=== PATIENT | male | born 1960 | race Caucasian/White ===

== ENCOUNTER → 2017-07-25 09:12 | Outpatient (CLI) | payer BC, SELFPAY ==
[2017-07-25 09:57] LABS: PSA,Total- Diagnostic < 0.01 ng/mL (0.0-4.0)
== END ==
PROVIDERS: Family Provider Family Medicine; PCP Family Medicine; Visit Provider Urology
DX: C61 Malignant neoplasm of prostate (principal)
CPT/HCPCS: 36415; 84153

== ENCOUNTER → 2018-02-04 08:12 | Outpatient (CLI) | payer BC, SELFPAY ==
[2018-02-04 09:52] LABS: PSA,Total- Diagnostic < 0.01 ng/mL (0.0-4.0)
== END ==
PROVIDERS: Family Provider Family Medicine; PCP Family Medicine; Visit Provider Urology
DX: C61 Malignant neoplasm of prostate (principal)
CPT/HCPCS: 36415; 84153

== ENCOUNTER → 2018-08-04 10:40 | Outpatient (CLI) | payer BC, SELFPAY ==
[2016-08-11 06:12] VITALS: BMI 27.3
[2018-08-04 12:20] LABS: PSA,Total- Diagnostic < 0.01 ng/mL (0.0-4.0)
== END ==
PROVIDERS: Family Provider Family Medicine; PCP Family Medicine; Referring Provider Urology; Visit Provider Urology
DX: C61 Malignant neoplasm of prostate (principal)
CPT/HCPCS: 36415; 84153

== ENCOUNTER → 2019-02-10 09:53 | Outpatient (CLI) | payer BC, SELFPAY ==
[2016-08-11 06:12] VITALS: BMI 27.3
[2019-02-10 10:48] LABS: PSA,Total- Diagnostic < 0.01 ng/mL (0.0-4.0)
== END ==
PROVIDERS: Family Provider Family Medicine; PCP Family Medicine; Referring Provider Urology; Visit Provider Urology
DX: C61 Malignant neoplasm of prostate (principal)
CPT/HCPCS: 36415; 84153; 84403

== ENCOUNTER → 2020-02-16 10:26 | Outpatient (CLI) | payer BC, SELFPAY ==
[2016-08-11 06:12] VITALS: BMI 27.3
[2020-02-16 11:44] LABS: PSA,Total- Diagnostic < 0.01 ng/mL (0.0-4.0)
== END ==
PROVIDERS: PCP Family Medicine; Referring Provider Urology; Visit Provider Urology
DX: C61 Malignant neoplasm of prostate (principal)
CPT/HCPCS: 36415; 84153

== ENCOUNTER → 2022-07-12 | Outpatient (CLI) | payer OTHER, SELFPAY ==
[2022-07-12 10:45] LABS: PSA,Total- Diagnostic < 0.01 ng/mL (0.0-4.0)
== END | disposition home or self-care (01) ==
LOC: LAB 09:36
PROVIDERS: PCP Physician Assistant; Referring Provider Registered Nurse; Visit Provider Registered Nurse
DX: C61 Malignant neoplasm of prostate (principal)
CPT/HCPCS: 36415; 84153

== ENCOUNTER → 2023-06-04 | Outpatient (CLI) | payer OTHER, SELFPAY ==
--- OUTSIDE RECORDS SUMMARY | 2023-06-04 09:44 | XMS RPT_ITS | CCD ---
Author Name Unknown Address [address] [facility] [address] [place] [address] Organization [facility] Care Team Providers Care Top Tile Decorator Name Role Phone BARBARA GIBSON PA-C Consulting Unavailab le BARBARA GIBSON PA-C Referring Unavailab le DOS, OLGA ERENDIRA Admitting Unavailable DOS, OLGA ERENDIRA Primary Care Unavailable DOS, OLGA KRISHNA Attending Unavailable PROVIDER, UNKNOWN Consulting Unavailable RICKY WILLS Consulting Unavailable MCWILLIAMS, ARISTEO INDUSTRIAL BOILERMAKER- Admitting Unavailable MCWILLIAMS, ARISTEO INDUSTRIAL BOILERMAKER- Primary Care Unavailable MCWILLIAMSARISTEO Mayer INDUSTRIAL BOILERMAKER- Attending Unavailable PROVIDER, UNKNOWN Consulting Unavailable PROVIDER, UNKNOWN Consulting Unavailable PROVIDER, UNKNOWN Consulting Unavailable Results Test Name Value Interpretation Reference Range Facil ity Encounters Encounter Date Encounter Type Care Provider Facility Start: 02-08-2022 End: 02-09-2022 Emergency department patient visit BARBARA GIBSON [facility] Start: 04-06-2021 End: 04-06-2021 ambulatory RICKY WILLS [facility] Payers Date Payer Category Payer Unknown [id number] Unknown [id number] Summary Purpose Family History No Family History Records FoundNo Family History Records Found Advance Directives No Advanced Directives Records FoundNo Advanced Directives Records Found Additional Source Comments (unrecognized sect ion and content) No Status Records FoundNo Status Records Found INFORMATION SOURCE (unrecogn ized section and content) DATE CREATED AUTHOR AUTHOR'S STAR ATION 02/10/2022 [facility] FOR RECORDS PERTAINING TO PATIENTS WHO ARE OR HAVE BEEN ENROLLED IN A CHEMICAL DEPENDENCY/SUBSTANCEABUSE PROGRAM, SOME INFORMATION MAY BE OMITTED. This clinical summary was aggregated from multiple sources. Caution should be exercised in using it in the provision of clinical care. This summary normalizes information from multiple sources, and as a consequence, information in this document may materially change the coding, format and clinical context of patient data. In addition, data may be omitted in some cases. CLINICAL DECISIONS SHOULD BE BASED ON THE PRIMARY CLINICAL RECORDS. [facility] [address] [facility]. provides no warranty or guarantee of the accuracy or completeness of information in this document.
[2023-06-04 11:44] LABS: PSA,Total- Diagnostic < 0.01 ng/mL (0.0-4.0)
== END | disposition home or self-care (01) ==
LOC: LAB 09:42
PROVIDERS: PCP Physician Assistant; Referring Provider Registered Nurse; Visit Provider Registered Nurse
DX: C61 Malignant neoplasm of prostate (principal)
CPT/HCPCS: 36415; 84153

== ENCOUNTER → 2025-01-11 | Outpatient (CLI) | payer OTHER, SELFPAY ==
[2025-01-11 12:15] LABS: PSA,Total- Diagnostic < 0.02 ng/mL (0.00-4.00)
--- OUTSIDE RECORDS SUMMARY | 2025-01-11 13:04 | XMS RPT_ITS | CCD ---
Author Organization [facility] Inform ion Partnership [facility] Care Team Providers Care Sawmill Manager Name Role Phone Iain Gonzalez Primary Care Unavailable McCuistion, Rita Referring Unavailable McCuistion, Rita Attending Unavailable McCuistion, Rita Attending Unavailable Iain Gonzalez Primary Care Unavailable McCuistion, Rita Referring Unavailable RICKY WILLS Consulting Unavailable DOMINIQUE PITTMAN MD Attending Unavailable DOMINIQUE PITTMAN MD Primary Care Unavailable DOMINIQUE PITTMAN MD Admitting Unavailable PROVIDER, UNKNOWN Consulting Unavailable PROVIDER, UNKNOWN Consulting Unavailable PROVIDER, UNKNOWN Consulting Unavailable Allergies Allergy Classification Reported Allergen(s) Allergy Type Date of Onset Reaction(s) Facility (2 sources) Environmental Allergies: Uncoded; Translations: [Environmental Allergies: Uncoded] Propensity to adverse reactions 2 headache [facility] Medications Current Medications Medication Drug Class(es) Dates Sig (Normalized) Sig (Original) bicalutamide 50 mg oral tablet (2 sources) Androgen Receptor Inhibitor Start: 08-03-2016 take 50 mg by mouth once daily Bicalutamide Active 50 MG PO DAILY August 03, 2016 12:00am 0.25 ml leuprolide acetate 30 mg/ml prefilled syringe (2 sources) Gonadotropin Releasing Hormone Receptor Agonist Start: 08-11-2016 inject 7.5 mg by subcutaneous injection once daily Leuprolide (Eligard) 7.5 MG syringe Active 7.5 MG SQ DAILY August 10, 2016 11:00pm Multivitamin (Daily Multiple Vitamin) 1 EACH tablet (2 sources) Start: 07-22-2015 take 1 tablet by mouth once daily Multivitamin (Daily Multiple Vitamin) 1 EACH tablet Active 1 EACH PO DAILY July 22, 2015 12:00am [place]-3 Fatty Acids-Fish Oil (Fish Oil 1,000 Mg Capsule) 1 EACH capsule (2 sources) Start: 07-22-2015 take 1 capsule by mouth twice daily [place]-3 Fatty Acids-Fish Oil (Fish Oil 1,000 Mg Capsule) 1 EACH capsule Active 1000 MG PO TWICE A DAY July 22, 2015 12:00am sildenafil 20 mg oral tablet (2 sources) Phosphodiesterase 5 Inhibitor Start: 08-03-2016 Sildenafil (Pulm.Hypertensio n) Active 20 MG PO NEEDED August 03, 2016 12:00am Problems Problem Classification Problem Date Documented Da te Episodic/Chronic Cancer of prostate (2 sources) Malignant neoplasm of prostate; Translations: [Malignant neoplasm of prostate] Onset: 07-20-2022 Chronic Results Test Name Value Interpretation Reference Range Facility CBC + DIFFon 07-10-2024 Baso # 0.01 x10EE3/UL Normal 0.00 - 0.10 [facility] Comment on above: Performed By: #### 2 [id number] #### [facility],[address] [place] [address] 12702 Basophils/100 WBC (Bld) 0.2 % Normal 0.0 - 2.0 [facility] Comment on above: Performed By: #### 2 31508 #### [facility],[address] [place] [address] 63741 CBC + DIFF Normal [facility] Comment on above: Result Comment: CBC- COMPLETE BLOOD COUNT Performed By: #### 2 68659 #### [facility],[address] [place] [address] 12981 EO # 0.03 x10EE3/UL Normal 0.00 - 0.50 [facility] Comment on above: Performed By: #### 2 59139 #### [facility],[address] [place] [address] 82383 Eosinophils/100 WBC (Bld) 0.5 % Normal 0.0 - 7.0 [facility] Comment on above: Performed By: #### 2 19861 #### [facility],[address] [place] [address] 92868 Erythrocyte distribution width (RBC) [Ratio] 12.6 % Normal 12.0 - 15.6 [facility] Comment on above: Performed By: #### 2 42713 #### [facility],[address] [place] [address] Hematocrit (Bld) [Volume fraction] 40.3 % Normal 40.0 - 52.0 [facility] Comment on above: Performed By: #### 2 78505 #### [facility],[address] [place] [address] Hemoglobin (Bld) [Mass/Vol] 14.2 g/dL Normal 13.0 - 17.5 [facility] Comment on above: Performed By: #### 2 69704 #### [facility],[address] [place] [address] Lymph # 0.48 x10EE3/UL Low 0.80 - 2.80 [facility] Comment on above: Performed By: #### 2 59423 #### [facility],[address] [place] [address] Lymphocytes/100 WBC (Bld) 7.4 % Low 20.0 - 45.0 [facility] Comment on above: Performed By: #### 2 95558 #### [facility],[address] [place] [address] MANUAL DIFF N/A Normal [facility] Comment on above: Performed By: #### 2 84303 #### [facility],[address] [place], [place] [id number] MCH (RBC) [Entitic mass] 33 pg Normal 27 - 33 [facility] Comment on above: Performed By: #### 2 75336 #### [facility],[address] [place], [place] [id number] MCHC 35 X10 3 Normal 32 - 36 [facility] Comment on above: Performed By: #### 2 47113 #### [facility],[address] [place] [address] 76852 MCV (RBC) [Entitic vol] 92 fL Normal 81 - 98 [facility] Comment on above: Performed By: #### 2 04749 #### [facility],[address] [place] [address] 47810 [place] # 0.95 x10EE3/UL Normal 0.20 - 1.00 [facility] Comment on above: Performed By: #### 2 20466 #### [facility],[address] [place] [address] 56952 MONOS % 14.7 % High 0.0 - 10.0 [facility] Comment on above: Performed By: #### 2 27421 #### [facility],[address] [place] [address] 15807 Morphology Ki (Bld) [Interp] N/A Normal [facility] Comment on above: Performed By: #### 2 66500 #### [facility],[address] [place] [address] 28649 Neut # 5.01 x10EE3/UL Normal 1.50 - 7.10 [facility] Comment on above: Performed By: #### 2 74587 #### [facility],[address] [place] [address] 78920 Neutrophils/100 WBC (Bld) 77.2 % High 46.0 - 76.0 [facility] Comment on above: Performed By: #### 2 32065 #### [facility],[address] [place] [address] 41545 PLATELET 230 x10EE3/UL Normal 150 - 450 [facility] Comment on above: Performed By: #### 2 80178 #### [facility],[address] [place] [address] 40192 Platelet mean volume (Bld) [Entitic vol] 7.9 fL Normal 6.4 - 10.5 [facility] Comment on above: Result Comment: AUTO MATED DIFFERENTIAL Performed By: #### 2 19847 #### [facility],[address] [place] [address] 59003 RBC 4.37 x 10EE6/UL Low 4.50 - 6.00 [facility] Comment on above: Performed By: #### 2 25038 #### [facility],[address] [place] [address] 49762 WBC 6.5 x 10EE3/UL Normal 4.5 - 10.8 [facility] Comment on above: Performed By: #### 2 12930 #### [facility],[address] [place], [place] [id number] CMP with eGFRon 07-10-2024 AGE 63 years Normal [facility] Comment on above: Performed By: #### 2 32929 #### [facility],[address] [place] [address] 39782 Albumin [Mass/Vol] 3.8 g/dL Normal 3.4 - 5.0 [facility] Comment on above: Performed By: #### 2 52821 #### [facility],[address] [place] [address] Albumin/Globulin [Mass ratio] 1.1 {ratio} Normal 0.9 - 1.6 [facility] Comment on above: Performed By: #### 2 17583 #### [facility],[address] [place], [place] [id number] ALK PHOS 79 U/L Normal 46 - 116 [facility] Comment on above: Performed By: #### 2 13152 #### [facility],[address] [place] [address] 00808 ALT [Catalytic activity/Vol] 33 U/L Normal 16 - 63 [facility] Comment on above: Performed By: #### 2 31230 #### [facility],[address] [place] [address] 62152 Anion gap [Moles/Vol] 15 mmol/L Normal 10 - 20 [facility] Comment on above: Performed By: #### 2 69995 #### [facility],[address] [place] [address] 43609 AST [Catalytic activity/Vol] 36 U/L Normal 15 - 37 [facility] Comment on above: Performed By: #### 2 87305 #### [facility],[address] [place] [address] 01520 B/C RATIO 13 ratio Normal 0 - 30 [facility] Comment on above: Performed By: #### 2 40881 #### [facility],[address] [place] [address] 35287 Bilirubin [Mass/Vol] 0.7 mg/dL Normal 0.2 - 1.0 [facility] Comment on above: Performed By: #### 2 07570 #### [facility],[address] [place] [address] 26807 Calcium [Mass/Vol] 8.3 mg/dL Low 8.5 - 10.1 [facility] Comment on above: Performed By: #### 2 81421 #### [facility],[address] [place] [address] 01106 Chloride [Moles/Vol] 102 mmol/L Normal 98 - 107 [facility] Comment on above: Performed By: #### 2 23481 #### [facility],[address] [place] [address] 48334 CMP with eGFR Normal [facility] Comment on above: Result Comment: COMP REHENSIVE METABOLIC PANEL Performed By: #### 2 00225 #### [facility],[address] [place] [address] 56490 CO2 [Moles/Vol] 26.5 mmol/L Normal 21.0 - 32.0 [facility] Comment on above: Performed By: #### 2 37571 #### [facility],[address] [place] [address] 54016 Creatinine [Mass/Vol] 1.01 mg/dL Normal 0.70 - 1.30 [facility] Comment on above: Performed By: #### 2 00580 #### [facility],[address] [place] [address] 07628 GFR/1.73 sq M.predicted among non-blacks MDRD (S/P/Bld) [Vol rate/Area] mL/min/{1.73_m2} Normal 60 - 999 [facility] Comment on above: Performed By: #### 2 86463 #### [facility],[address] [place] [address] 35629 Result Comment: ACCO RDING TO THE NATIONAL KIDNEY DISEASE EDUCATION PROGRAM(NKDE), A NORMAL eGFR IS A VALUE GREATER THAN OR EQUAL TO 60 ML/MIN/1.73 SQ METERS. CHRONIC KIDNEY DISEASE: <60mL/MIN/1.73 SQ METERS KIDNEY FAILURE: <15mL/MIN/1.73 SQ METERS THIS TEST SHOULD ONLY BE USED FOR PATIENTS 18 YEARS OF AGE AND OLDER. Globulin (S) [Mass/Vol] 3.4 g/dL Normal 1.5 - 3.8 [facility] Comment on above: Performed By: #### 2 74356 #### [facility],[address] [place] [address] 93994 Glucose [Mass/Vol] 123 mg/dL High 74 - 106 [facility] Comment on above: Performed By: #### 2 43856 #### [facility],[address] [place] [address] 28704 Potassium [Moles/Vol] 3.9 mmol/L Normal 3.5 - 5.1 [facility] Comment on above: Performed By: #### 2 48955 #### [facility],[address] [place] [address] 25871 Protein [Mass/Vol] 7.2 g/dL Normal 6.4 - 8.2 [facility] Comment on above: Performed By: #### 2 21832 #### [facility],[address] [place] [address] 83641 Sodium [Moles/Vol] 140 mmol/L Normal 136 - 145 [facility] Comment on above: Performed By: #### 2 54628 #### [place] [address],[place] [address] Urea nitrogen [Mass/Vol] 13 mg/dL Normal 7 - 18 [facility] Comment on above: Performed By: #### 2 88423 #### [facility],[address] [place] [address] 12733 CORONAVIRUS (SARS) ANTIGEN T ESTon 07-10-2024 EXTERNAL QC DONE? YES Normal [facility] Comment on above: Performed By: #### 2 48685 #### [facility],[address] [place] [address] INTERNAL CONTROL PASS Normal [facility] Comment on above: Performed By: #### 2 60464 #### [facility],[address] [place], [place] [address] SARS ANTIGEN Negative Normal NORMAL: NEGATIVE [facility] Comment on above: Performed By: #### 2 92484 #### [facility],[address] [place], [place] [id number] SEND TO ? NO Normal [facility] Comment on above: Result Comment: SARS -CoV-2 THIS TEST IS BEING USED UNDER THE FDA EUA PROCEDURE. THIS ASSAY HAS BEEN VALIDATED AT [facility] FOR USE WITH NASAL AND NASOPHARYNGEAL SWAB SPECIMENS. INTERPRETIVE DATA TEST RESULTS SHOULD ALWAYS BE CONSIDERED IN THE CONTEXT OF CLINICAL OBSERVATIONS AND EPIDEMIOLOGICAL DATA IN MAKING FINAL DIAGNOSIS AND PATIENT MANAGEMENT DECISIONS. PATIENT MANAGEMENT SHOULD FOLLOW CURRENT CDC GUIDELINES. THE [place] SARS ANTIGEN NENA DOES NOT DIFFERENTIATE BETWEEN SARS-CoV & SARS-CoV-2. A POSITIVE TEST RESULT INDICATES THE PRESENCE OF SARS-CoV-2 NUCLEOCAPSID PROTEIN ANTIGEN, AND THE PATIENT IS INFECTED WITH THE VIRUS AND PRESUMED TO BE CONTAGIOUS. A NEGATIVE TEST RESULT FOR THIS TEST MEANS THAT SARS-CoV-2 NUCLEOCAPSID PROTEIN ANTIGEN WAS NOT PRESENT IN THE SPECIMEN ABOVE THE LIMIT OF DETECTION. HOWEVER, A NEGATIVE RESULT DOES NOT RULE OUT COVID-19 AND SHOULD NOT BE USED THE SOLE BASIS FOR TREATMENT OR PATIENT MANAGEMENT DECISIONS. A NEGATIVE RESULT DOES NOT EXCLUDE THE POSSIBILITY OF COVID-19. NEGATIVE RESULTS, FROM PATIENTS WITH SYMPTOM ONSET BEYOND FIVE DAYS, SHOULD BE TREATED PRESUMPTIVE AND CONFIRMATION WITH A MOLECULAR ASSAY, IF NECESSARY, FOR PATIENT MANAGEMENT, MAY BE PERFORMED. WHEN DIAGNOSTIC TESTING IS NEGATIVE, THE POSSIBLILTY OF A FALSE NEGATIVE RESULT SHOULD BE CONSIDERED IN THE CONTEXT OF A PATIENT'S RECENT EXPOSURES AND THE PRESENCE OF CLINICAL SIGNS AND SYMPTOMS CONSISTENT WITH COVID-19. THE POSSIBILITY OF A FALSE NEGATIVE RESULT SHOULD ESPECIALLY BE CONSIDERED IF THE PATIENT'S RECENT EXPOSURES OR CLINICAL PRESENTATION INDICATE THAT COVID-19 IS LIKELY, AND DIAGNOSTIC TESTS FOR OTHER CAUSES OF ILLNESS (e.g., OTHER RESPIRATORY ILLNESS) ARE NEGATIVE. IF COVID-19 IS STILL SUSPECTED BASED ON EXPOSURE HISTORY TOGETHER WITH OTHER CLINICAL FINDINGS, RE-TESTING SHOULD BE CONSIDERED BY HEALTHCARE PROVIDERS IN CONSULTATION WITH PUBLIC HEALTH AUTHORITIES. Performed By: #### 2 07869 #### [facility],[address] [place] [address] CT CHEST (PE PROTOCOL)on CT CHEST (PE PROTOCOL) [place] [address] Patient: EMANUEL DURÁN Phone#: : 1960 Age: 63 Gender: M Pt. Type: ER Account: [id number] Location: [facility] Ordering: DR. LES KELLY Exam Date: 07/10/2024/19:12 Family Phys: Charge Code: [id number] Physician: Freestone Order #: [id number] Dose#: 8.4 mGy PROCEDURE: CT CHEST WITH CONTRAST FOR PE COMPARISON: None. INDICATIONS: Chest pain. TECHNIQUE: After obtaining the patient's consent, CT images were obtained with non-ionic intravenous contrast material. Multi-planar images were created to optimize visualization of vascular anatomy with MPR/MIPS and 3D imaging. All CT scans at this facility use dose modulation, iterative reconstruction, and/or weight based dosing when appropriate to reduce radiation dose to as low as reasonably achievable. IV CONTRAST: Omnipaque 350,100ml TOTAL DOSE: 8.4 CTDIvol(mGy) FINDINGS: VASCULATURE: Normal. No visible pulmonary arterial thrombus or attenuation. AORTA: Ascending aorta is 4 centimeters in diameter. There is no evidence of dissection. LUNGS: Normal. No visible pulmonary disease. LIOR: Normal. No mass or adenopathy. MEDIASTINUM: A small hiatal hernia is present.. No mass or adenopathy. CARDIAC: Normal. No enlargement, pericardial thickening, or significant calcification. PLEURA: Normal. No mass or effusion. CHEST WALL: Normal. No mass or axillary adenopathy. LIMITED ABDOMEN: Normal. Limited images of the upper abdomen are unremarkable. BONES: Normal. No bony lesion or fracture. OTHER: Negative. CONCLUSION: 1. There is no evidence pulmonary embolus. 2. There is no evidence of acute pulmonary abnormality. Continued Report - Page 2 of 2 Patient: EMANUEL DURÁN Phone#: : 1960 Age: 63 Gender: M Pt. Type: ER Account: [id number] Location: 2 Ordering: DR. LES KELLY Exam Date: 07/10/2024/19:12 Family Phys: Charge Code: [id number] Physician: Freestone Order #: [id number] Dose#: 8.4 mGy Dictated by: Shelia Bernstein MD on 07/10/2024 at 19:49 Approved by: Shelia Bernstein MD on 07/10/2024 at 19:54 Normal [facility] ED MED ADMINISTRATION DETAIL on 07-10-2024 ED MED ADMINISTRATION DETAIL Senior Payroll Administrator Medication Administration Record [address] [address] [id number] 07/10/2024 Patient: EMANUEL DURÁN Sex: Male : 1960 Age: 63y MEASUREMENTS: Wt: 95.3 kg, Ht/Lane: 68.0 in, BMI: 31.93 ALLERGIES: No known drug allergies Medication Ordered Medication Administration Date/Time Zofran IVP 4 mg 18:52 07/10 Zofran IVP 4 mg given via Site# 1. Allergies verified Given (NOW x1) and confirmed 5 rights. IV patency established. IV site checked: no 18:52 07/10/2024 pain, redness, or swelling. IV flushed thoroughly pre-medication Jim VenturaNJordy administration. IVP given by nurse. Information reviewed with Scanned patient including reason for taking this medication, signs of allergic reaction and precautions. Verbalizes understanding. - 18:52 Norbert Torres R.N. IV NS 0.9 % 1000 18:52 07/10 IV NS 0.9 % 1000 mL started in bag#1 1000 mL at Started mL at 250 mL/hr 250 mL/hr via Site# 1. Allergies verified and confirmed 5 rights. IV 18:52 07/10/2024 (NOW x1) patency established. IV site checked: no pain, redness, or swelling. Norbert Torres R.N. IV flushed thoroughly pre-medication administration. Information Stopped reviewed with patient including reason for taking this medication, 21:27 07/10/2024 signs of allergic reaction and precautions. Verbalizes Clayton Aviles R.N. understanding. - 18:55 Norbert Torres R.N. Scanned 21:07/10 Medication Discontinued: bag #1 infused. Total amount infused: 1000 mL. IV patency established. IV site checked: no pain, redness, or swelling. IV flushed thoroughly post-medication administration. - 21:42 Clayton Aviles R.N. 1 of 2 Senior Payroll Administrator Medication Ordered Medication Administration Date/Time Acetaminophen 19:07/10 Acetaminophen (Tylenol) PO 650 mg given. Allergies Given (Tylenol) PO 650 verified and confirmed 5 rights. Information reviewed with patient 19:27 07/10/2024 mg (NOW x1) including reason for taking this medication. Verbalizes Clayton Aviles R.N. understanding. - 19:27 Clayton Aviles R.N. Scanned Tamiflu PO 75 mg 21:43 07/10 Tamiflu PO 75 mg given. Allergies verified and Given (NOW x1) confirmed 5 rights. Information reviewed with patient including 21:43 07/10/2024 reason for taking this medication. Verbalizes understanding. - Clayton Aviles R.N. 21:44 Clayton Aviles R.N. Scanned 2 of 2 Normal [facility] ED NURSES CLINICAL NOTEon ED NURSES CLINICAL NOTE Nurse Narrative Nurse Clinical Narrative [address] [address] [id number] 07/10/2024 Patient: EMANUEL DURÁN Sex: Male : 1960 Age: 63y Primary Insurance: [employer] [facility] Policy Number: [id number] Group Number: [id number] Subscriber: Other Disposition: Discharge to Home Disposition Decision Time: 23:00 07/10/2024 Departure Time: 23:08 07/10/2024 TRIAGE Arrived by private vehicle. Historian: (patient). Accompanied by family. Triage time: 16:28 07/10/2024. Acuity: LEVEL 3. Chief Complaint: MUSCLE ACHES, POOR APPETITE, COUGH and BACK PAIN (Pt can't hold his urine.). Onset. (Tuesday night). The patient has had weakness. Reports muscle aches. SEPSIS SCREEN: NEGATIVE. SIRS criteria negative: temperature greater than 38 degrees C (100.4 degrees F). No possible sources of infection. -- 16:36 07/10/24 NATALIE Monahan R.N. 16:35 07/10/24. BP: 120/68 MAP: 85. HR: 85. RR: 18. O2 saturation: 94% Temperature: 102.3 F. Pain level now 0/10. -- 16:36 07/10/24 NATALIE Monahan R.N. Measurements: 16:33 07/10/24 Wt: 95.3 kg, Ht/Lane: 68.0 in, BMI: 31.93 -- 16:33 07/10/24 NATALIE Monahan R.N. Medications: no known home medications -- 16:31 07/10/24 NATALIE Monahan R.N. 1 of 4 Nurse Narrative 16:28 07/10/24. Preferred Pharmacy: [facility] -- 16:36 07/10/24 NATALIE Monahan R.N. Allergies: no known drug allergies -- 16:31 07/10/24 NATALIE Monahan R.N. Problems: Cancer. prostate cancer -- 18:49 07/10/24 NATALIE Kelly M.D. ADDITIONAL SURGERIES: prostate cancer -- 16:32 07/10/24 NATALIE Monahan R.N. History 16:28 07/10/24. PAST MEDICAL HX: Other immunizations: received influenza: annual; received COVID-19: annual booster dose; received shingles: first dose; received pneumonia: first dose. SOCIAL HX: Never smoker. No alcohol use or drug use. The patient has not traveled outside the [place] Infectious disease exposure: No infectious disease exposure. ABUSE ASSESSMENT: The patient answered yes to the question(s) Do you feel safe in your home? and no to the question(s) Are you afraid to go home?. SELF HARM ASSESSMENT: Self harm assessment was performed. The patient answered no to the question(s) Have you recently felt down, depressed, or hopeless? and Do you have thoughts of harming or killing yourself?. FALL RISK ASSESSMENT: Fall risk assessment completed. No risk factors identified. -- 16:36 07/10/24 NATALIE Monahan R.N. Interventions 16:28 07/10/24. Advanced care plan discussed with patient. Patient does not have advanced directive. -- 16:36 07/10/24 NATALIE Monahan R.N. 2 of 4 Nurse Narrative PHYSICAL ASSESSMENT 18:07/10/24. Ambulatory to room. (Pt c/o cough, congestion, headache and chest tightness x two days. Febrile upon arrival to the ED with a temperature of 102.3 F.). GENERAL / NEURO / PSYCH: Alert. Oriented X 4. RESPIRATORY: Respirations not labored. Breath sounds within normal limits. CVS: Heart sounds within normal limits. Capillary refill less than 2 seconds. GI / : Abdomen soft and nontender. SKIN: Skin intact. Skin is warm. Skin is diaphoretic. -- 18:17 07/10/24 NATALIE Torres R.N. NURSING PROGRESS NOTES 18:07/10/24. Patient identifiers checked. Call light placed in reach. Side rails up x 2. Bed placed in lowest position. Brakes of bed on. -- 18:16 07/10/24 NATALIE Torres R.N. 18:10 07/10/24. Site #1 started via IV in the right antecubital space with an 18g angiocath with aseptic technique and good blood return; 1 attempt. Blood drawn: rainbow set tube(s). Saline lock flushed with 5 mL saline. -- 18:15 07/10/24 NATALIE Torres R.N. 18:52 07/10/24. Zofran IVP 4 mg given via Site# 1. Allergies verified and confirmed 5 rights. IV patency established. IV site checked: no pain, redness, or swelling. IV flushed thoroughly pre-medication administration. IVP given by nurse. Information reviewed with patient including reason for taking this medication, signs of allergic reaction and precautions. Verbalizes understanding. -- 18:52 07/10/24 NATALIE Torres R.NJordy 18:52 07/10/24. IV NS 0.9 % 1000 mL started in bag#1 1000 mL at 250 mL/hr via Site# 1. Allergies verified and confirmed 5 rights. IV patency established. IV site checked: no pain, redness, or swelling. IV flushed thoroughly pre-medication administration. Information reviewed with patient including reason for taking this medication, signs of allergic reaction and precautions. Verbalizes understanding. -- 18:55 07/10/24 Jim SheriffNJordy 19:05 07/10/24. Care transferred and report given (to JO Arnold). -- 19:25 07/10/24 Jim SheriffNJordy 19:09 07/10/24. Critical value relayed by Beverly from lab (19:09 07/10/2024). Critical value received by clayton (1 (more content not included)... Normal [facility] ED ORDER SHEET (CPOE ONLY)on 07-10-2024 ED ORDER SHEET (CPOE ONLY) Order Sheet Order Sheet [address] [address] [id number] 07/10/2024 Patient: EMANUEL DURÁN Sex: Male : 1960 Age: 63y MEASUREMENTS: Wt: 95.3 kg, Ht/Lane: 68.0 in, BMI: 31.93 ALLERGIES: No known drug allergies MEDICATION/IV/DRIP/F LUID ORDERS Order Description Priority Entered Acknowledged Completed Zofran IVP4 mg (NOW x1) 18:45 07/10/2024 18:52 18:52 Les Kelly M.D. 07/10/2024 07/10/2024 Norbert Ventura R.N. R.N. IV NS 0.9 %1000 mL at 250 18:45 07/10/2024 18:52 18:55 mL/hr (NOW x1) Les Kelly M.D. 07/10/2024 07/10/2024 Norbert Ventura, R.N. R.N. Acetaminophen (Tylenol) 18:53 07/10/2024 19:26 19:27 PO650 mg (NOW x1) Les Kelly M.D. 07/10/2024 07/10/2024 Clayton Mendez, Daniel.N. R.N. Tamiflu PO75 mg (NOW x1) 21:28 07/10/2024 21:41 21:44 Les Kelly M.D. 07/10/2024 07/10/2024 Clayton Mendez, Daniel.N. R.N. 1 of 4 Order Sheet LAB ORDERS Order Description Priority Entered Acknowledged Collected Completed CBC w Diff Stat Stat 18:07/10/2024 18:07/10/2024 18:31 07/10/2024 Norbert Eastep, Norbert Eastep, Norbert Eastep, R.N. R.N. R.N. Verbal Order, Auth by: Les Kelly M.D. Read back and verified CMP Stat Stat 18:07/10/2024 18:31 07/10/2024 18:31 07/10/2024 Norbert Torres, Norbert Eastep, Norbert Eastep, R.N. R.N. R.N. Verbal Order, Auth by: Les Kelly M.D. Read back and verified Troponin-I Stat Stat 18:07/10/2024 18:31 07/10/2024 18:31 07/10/2024 Norbert Eastep, Norbert Eastep, Norbert Eastep, R.N. R.N. R.N. Verbal Order, Auth by: Les Kelly M.D. Read back and verified BNP Stat Stat 18:31 07/10/2024 18:31 07/10/2024 18:31 07/10/2024 Norbert Eastep, Norbert Eastep, Norbert Eastep, R.N. R.N. RJordyNJordy Verbal Order, Auth by: Les Kelly M.D. Read back and verified Rapid COVID (SARS) Stat 18:31 07/10/2024 18:31 07/10/2024 18:31 07/10/2024 2 of 4 Order Sheet ANTIGEN TEST Stat Norbert Torres, Norbert Torres, Jim VenturaNJordy FernandezN. R.NJordy Verbal Order, Auth by: Les Kelly M.D. Read back and verified Flu Swab (Influenzae Stat 18:31 07/10/2024 18:31 07/10/2024 18:31 07/10/2024 AAg) Stat Norbert Torres, Norbert Torres, Jim VenturaNJordy RJordyN. R.NJordy Verbal Order, Auth by: Les Kelly M.D. Read back and verified Lactate, Serum Stat Stat 18:45 07/10/2024 18:57 07/10/2024 18:57 07/10/2024 Norbert Rojo Lucas Eastep, M.D. R.Alex. RJordyN. Troponin-I Stat Stat 21:20 07/10/2024 21:41 07/10/2024 21:41 07/10/2024 Clayton Rojo, Ez Mendez.N. RChristopher DIAGNOSTIC STUDY ORDERS Order Description Priority Entered Acknowledged Completed CT Chest PE Study Stat Stat 18:31 07/10/2024 18:31 18:31 Norbert Torres R.N. 07/10/2024 07/10/2024 Verbal Order, Auth by: Norbert Ventura Samuel Ojewale, M.D. R.N. R.NJordy Read back and verified Reason for Study: Chest Pain 3 of 4 Order Sheet STAFF ORDERS Order Description Priority Entered Acknowledged Collected Completed [Electronically signed by Les Kelly M.D. (07/10/2024 22:58 EST)] 4 of 4 Normal [facility] ED PHYSICIAN CLINICAL REPORT on 07-10-2024 ED PHYSICIAN CLINICAL REPORT Narrative Physician Clinical Narrative [address] [place] [address] [phone] 07/10/2024 [id number] Sex: Male : 1960 Age: 63y Primary Insurance: [employer] [facility] Policy Number: [id number] Group Number: [id number] Subscriber: Other Measurements Wt: 95.3 kg, Ht/Lane: 68.0 in, BMI: 31.93 Initial Vital Sign Measured Time BP MAP HR RR O2Sat ETCO2 Temp Pain GCS RTS 16:35 07/10/2024 120/68 85 85 18 94% 102.3 F 0 Time Seen: 18:22 07/10/2024. Historian- patient. HISTORY OF PRESENT ILLNESS Chief Complaint: URI symptoms. This started 2 1/2 days. The dyspnea is described as mild. Additional history - ( Patient is a 63-year-old gentleman, presents today to complain of ongoing cough, generalized malaise, decreased appetite over the last 2-1/2 days. complain of mild chest discomfort, mostly associated with cough, denies shortness of breath. Denies abdominal pain. he does complain of fever and chills. history of prostate cancer, in remission.). REVIEW OF SYSTEMS Negative review of system unless otherwise mentioned in HPI. PAST HISTORY See nurses notes. 1 of 16 Narrative Cancer: (prostate cancer) Surgeries: prostate cancer Medications: no known home medications Allergies: no known drug allergies SOCIAL HISTORY Never smoker. No alcohol use or drug use. ADDITIONAL NOTES The nursing notes have been reviewed. PHYSICAL EXAM Vital Signs: Have been reviewed. Appearance: Alert. No acute distress. Eyes: Pupils equal, round and reactive to light. Eyes normal inspection. Neck: Normal inspection. CVS: Normal heart rate. Heart sounds normal. Respiratory: No respiratory distress. coughing on exam. no increased work of breathing. no wheezing or stridor on exam. Abdomen: Soft and nontender. Skin: Skin warm and dry. Normal skin color. Normal skin turgor. Extremities: Extremities exhibit normal ROM. Neuro: Oriented X 3. LABS, X-RAYS, AND EKG Laboratory Tests: 2 of 16 Narrative CBC + DIFF Final JOLLY: 07/10/2024 18:10:00 EST MsgRcvd: 07/10/2024 18:47 EST Lab Test Result Reference Status Received Comments 07/10/2024 18:47 CBC-COMPLETE CBC + DIFF Final EST BLOOD COUNT 07/10/2024 18:47 WBC 6.5 x 10/UL 4.5 - 10.8 Final EST 4.37 x 10/UL 07/10/2024 18:47 RBC 4.50 - 6.00 Final Below low normal EST 07/10/2024 18:47 HEMOGLOBIN 14.2 g/dl 13.0 - 17.5 Final EST 07/10/2024 18:47 HEMATOCRIT 40.3 % 40.0 - 52.0 Final EST 07/10/2024 18:47 MCV 92 fl 81 - 98 Final EST 07/10/2024 18:47 MCH 33 pg 27 - 33 Final EST 07/10/2024 18:47 MCHC 35 X10 3 32 - 36 Final EST 07/10/2024 18:47 RDW/CV 12.6 % 12.0 - 15.6 Final EST 07/10/2024 18:47 PLATELET 230 x10/UL 150 - 450 Final EST 07/10/2024 18:47 AUTOMATED MPV 7.9 fl 6.4 - 10.5 Final EST DIFFERENTIAL 77.2 % 07/10/2024 18:47 NEUT % 46.0 - 76.0 Final Above high normal EST 3 of 16 Narrative Lab Test Result Reference Status Received Comments 7.4 % 07/10/2024 18:47 LYMPH % 20.0 - 45.0 Final Below low normal EST 14.7 % 07/10/2024 18:47 MONOS % 0.0 - 10.0 Final Above high normal EST 07/10/2024 18:47 EO % 0.5 % 0.0 - 7.0 Final EST 07/10/2024 18:47 BASO % 0.2 % 0.0 - 2.0 Final EST 0.48 x10/UL 07/10/2024 18:47 Lymph # 0.80 - 2.80 Final Below low normal EST 07/10/2024 18:47 Neut # 5.01 x10/UL 1.50 - 7.10 Final EST 07/10/2024 18:47 [place] # 0.95 x10/UL 0.20 - 1.00 Final EST 07/10/2024 18:47 EO # 0.03 x10/UL 0.00 - 0.50 Final EST 07/10/2024 18:47 Baso # 0.01 x10/UL 0.00 - 0.10 Final EST 07/10/2024 18:47 MANUAL DIFF N/A New Order EST 07/10/2024 18:47 MORPHOLOGY N/A New Order EST CMP with eGFR Final JOLLY: 07/10/2024 18:10:00 EST MsgRcvd: 07/10/2024 19:02 EST Lab Test Result Reference Status Received Comments 4 of 16 Narrative Lab Test Result Reference Status Received Comments COMPREHENSIVE 07/10/2024 CMP with eGFR Final METABOLIC 19:02 EST PANEL 07/10/2024 SODIUM 140 mmol/l 136 - 145 Final 19:02 EST 07/10/2024 POTASSIUM 3.9 mmol/L 3.5 - 5.1 Final 19:02 EST 07/10/2024 CHLORIDE 102 mmol/L 98 - 107 Final 19:02 EST 07/10/2024 CO2 26.5 mmol/L 21.0 - 32.0 Final 19:02 EST 123 mg/dl 07/10/2024 GLUCOSE Above high 74 - 106 Final 19:02 EST normal 07/10/2024 BUN 13 mg/dl 7 - 18 Final 19:02 EST 07/10/2024 CREATININE 1.01 mg/dl 0.70 - 1.30 Final 19:02 EST 07/10/2024 AST/SGOT 36 U/L 15 - 37 Final 19:02 EST 07/10/2024 ALK PHOS 79 U/L 46 - 116 Final 19:02 EST 8.3 mg/dl 07/10/2024 CALCIUM 8.5 - 10.1 Final Below low normal 19:02 EST TOTAL 07/10/2024 7.2 g/dl 6.4 - 8.2 Final PROTEIN 19:02 EST 5 of 16 Narrative Lab Test (more content not included)... Normal [facility] ED SUPER BILLon 07-10-2024 ED SUPER BILL [facility] [address] [place] [address] [phone] 07/10/2024 Patient: EMANUEL DURÁN Sex: Male : 1960 Age: 63y Item Facility Professional Category Description Code Code Quantity Fee Total Nurse/E/M EMERGENCY 263084 1 $0.00 $0.00 DEPARTMENT VISIT HIGH/URGENT SEVERITY (10799-76) Nurse/IV/IM/Infusion s Hydration 175184 3 $0.00 $0.00 additional hour (87577) Nurse/IV/IM/Infusion s IVP initial 462578 1 $0.00 $0.00 (14901) Grand Total $0.00 Providers Les Kelly M.D. Chief Complaint URI symptoms. 1 of 2 Superbil Principal Diagnosis Influenza type A with upper respiratory infection. ICD-10 Codes J11.1: Influenza due to unidentified influenza virus with other respiratory manifestations J06.9: Acute upper respiratory infection, unspecified 2 of 2 Normal [facility] ED VISIT SUMMARYon ED VISIT SUMMARY Visit Overview Visit Overview [address] [address] [id number] 07/10/2024 Patient: EMANUEL DURÁN Sex: Male : 1960 Age: 63y 07/10/2024 11:15 PM EST ED Arrival:16:25 07/10/2024 EST Status: Recent Travel:no Language:eng Adv Directive:No Isolation Status: Ethnicity:N Fall Risk:no risk Infectious Disease Exposure:no Measurements:5'8 / 172.7 Self-Harm Status:risk Sepsis Screen:negative cm 210.0 lb / 95.3 kg Chief Complaint:BACK PAIN, COUGH, MUSCLE ACHES, POOR APPETITE, (Pt can't hold his urine. ), and (Tuesday night) ALLERGIES No Known Drug Allergies HOME MEDICATIONS None PAST MEDICAL HISTORY / PROBLEMS Cancer. prostate cancer 1 of 3 Visit Overview Other immunizations: received influenza: annual; received COVID-19: annual booster dose; received shingles: first dose; received pneumonia: first dose See nurses notes PAST SURGICAL HISTORY prostate cancer SOCIAL HISTORY Smoking status: No Alcohol use: No Drug use: No ED COURSE MEDICATIONS GIVEN IN EMERGENCY DEPARTMENT 18:52 07/10/24 Zofran IVP 4 mg 18:52 07/10/24 IV NS 0.9 % 1000 mL 250 mL/hr 19:27 07/10/24 Acetaminophen (Tylenol) PO 650 mg 21:43 07/10/24 Tamiflu PO 75 mg IV SITE INFORMATION INTAKE OUTPUT REASSESMENT (most recent) 18:10 07/10/24. Ambulatory to room. (Pt c/o cough, congestion, headache and chest tightness x two days. Febrile upon arrival to the ED with a temperature of 102.3 F.). GENERAL / NEURO / PSYCH: Alert. Oriented X 4. RESPIRATORY: Respirations not labored. Breath sounds within normal limits. CVS: Heart sounds within normal limits. Capillary refill less than 2 seconds. GI / : Abdomen soft and nontender. SKIN: Skin intact. Skin is warm. Skin is diaphoretic. VITAL SIGNS First Vitals Last Vitals Temp 16:35 07/10/24 102.3 F Temp 23:08 07/10/24 99.7 F 2 of 3 Visit Overview First Vitals Last Vitals BP 16:35 07/10/24 120/68 BP 23:08 07/10/24 HR 16:35 07/10/24 85 HR 23:08 07/10/24 RR 16:35 07/10/24 18 RR 23:08 07/10/24 16 O2 Sat 16:35 07/10/24 94% O2 Sat 23:08 07/10/24 Pain 16:35 07/10/24 0 Pain 23:08 07/10/24 0 ETCO2 16:35 07/10/24 ETCO2 23:08 07/10/24 GCS 16:35 07/10/24 GCS 23:08 07/10/24 RTS 16:35 07/10/24 RTS 23:08 07/10/24 PROCEDURES NURSING INTERVENTIONS LABS / STUDIES LABS / STUDIES ORDERED BNP CBC w Diff CMP CT Chest PE Study Flu Swab (Influenzae AAg) Lactate, Serum Rapid COVID (SARS) ANTIGEN TEST Troponin-I Troponin-I CLINICAL IMPRESSION INFLUENZA TYPE A WITH UPPER RESPIRATORY INFECTION 3 of 3 Normal [facility] ED VITALS FLOW SHEETon 07-10 ED VITALS FLOW SHEET Vitals Vital Sign Flow Sheet [address] [place] [address] [id number] 07/10/2024 Patient: EMANUEL DURÁN Sex: Male : 1960 Age: 63y Measurements Wt: 95.3 kg, Ht/Lane: 68.0 in, BMI: 31.93 Measured Time BP MAP HR RR O2Sat ETCO2 Temp Pain GCS RTS 23:08 07/10/2024 16 99.7 F 0 23:01 07/10/2024 114/63 77 65 22:59 07/10/2024 67 93% 21:54 07/10/2024 71 93% 21:49 07/10/2024 72 93% 21:45 07/10/2024 124/67 79 69 21:44 07/10/2024 71 90% 21:39 07/10/2024 71 92% 21:34 07/10/2024 73 96% 21:30 07/10/2024 122/66 80 72 21:29 07/10/2024 74 93% 21:24 07/10/2024 72 92% 21:19 07/10/2024 73 95% 21:15 07/10/2024 119/64 76 72 21:14 07/10/2024 75 94% 1 of 3 Vitals Measured Time BP MAP HR RR O2Sat ETCO2 Temp Pain GCS RTS 21:09 07/10/2024 74 94% 21:04 07/10/2024 75 93% 21:01 07/10/2024 120/71 84 75 20:59 07/10/2024 72 94% 20:54 07/10/2024 74 94% 20:53 07/10/2024 126/65 82 72 20:34 07/10/2024 83 97% 20:31 07/10/2024 127/68 82 76 20:29 07/10/2024 76 95% 20:27 07/10/2024 16 93% 98.6 F 20:24 07/10/2024 79 93% 20:19 07/10/2024 79 94% 20:16 07/10/2024 123/67 78 76 20:14 07/10/2024 78 92% 20:09 07/10/2024 79 90% 20:04 07/10/2024 81 94% 20:01 07/10/2024 141/68 83 78 19:59 07/10/2024 78 93% 19:54 07/10/2024 78 93% 19:49 07/10/2024 76 93% 19:46 07/10/2024 137/75 93 79 19:44 07/10/2024 85 95% 19:39 07/10/2024 79 95% 19:34 07/10/2024 77 96% 19:32 07/10/2024 101.9 F 0 2 of 3 Vitals Measured Time BP MAP HR RR O2Sat ETCO2 Temp Pain GCS RTS 19:31 07/10/2024 147/79 93 78 19:29 07/10/2024 152/78 102 78 19:24 07/10/2024 77 93% 19:09 07/10/2024 79 92% 19:04 07/10/2024 74 90% 19:01 07/10/2024 132/68 89 74 18:59 07/10/2024 78 95% 18:54 07/10/2024 74 95% 18:49 07/10/2024 78 93% 18:46 07/10/2024 149/84 102 86 18:44 07/10/2024 80 94% 18:39 07/10/2024 78 96% 18:34 07/10/2024 77 94% 18:31 07/10/2024 138/79 92 81 18:29 07/10/2024 77 92% 18:24 07/10/2024 86 95% 18:19 07/10/2024 87 95% 18:16 07/10/2024 145/71 87 79 18:14 07/10/2024 78 95% 18:09 07/10/2024 80 93% 18:04 07/10/2024 77 95% 18:01 07/10/2024 143/75 94 75 16:35 07/10/2024 120/68 85 85 18 94% 102.3 F 0 3 of 3 Normal [facility] INFLUENZA VIRUS RAPID A/Bon 07-10-2024 INFLUENZA VIRUS RAPID A/B INFLUENZA A POSITIVE INFLUENZA B NEGATIVE INTERNAL NEG QC PASS INTERNAL POS QC PASS EXTERNAL QC DONE? YES SEND TO IC? YES A NEGATIVE TEST RESULT DOES NOT EXCLUDE INFECTION WITH INFLUENZA A OR B. THEREFORE, THE RESULTS OBTAINED FROM THIS FLU TEST SHOULD BE USED IN CONJUCTION WITH CLINICAL FINDINGS TO MAKE AN ACCURATE DIAGNOSIS. A POSITIVE RESULT DOES NOT RULE OUT CO-INFECTIONS WITH OTHER PATHOGENS OR IDENTIFY ANY SPECIFIC INFLUENZA A VIRUS SUBTYPE.CO-INFECTION WITH INFLUENZA A AND B IS RARE. IT IS RECOMMENDED THAT DUAL POSITIVE RESULTS BE CONFIRMED BY VIRAL CULTURE OR AN FDA-CLEARED INFLUENZA A AND B MOLECULAR ASSAY. INDIVIDUALS WHO HAVE RECEIVED NASALLY ADMINISTERED INFLUENZA A VACCINE MAY TEST POSITIVE IN COMMERCIALLY AVAILABLE INFLUENZA RAPID DIAGNOSTIC TESTS FOR UP TO THREE DAYS. RESULT CRITICAL? YES { CALLED TO BEVELRY DESIR @ 1905 BY LZ { READ BACK BY BEVERLY DESIR RA 1907 Normal [facility] Comment on above: Performed By: #### 2 [id number] ####[place] [id number] LACTATEon 07-10-2024 Lactate [Moles/Vol] 1.1 mmol/L Normal 0.4 - 2.0 [facility] Comment on above: Performed By: #### 2 [id number] #### [place] [address] NT-proBNPon 07-10-2024 Natriuretic peptide B (Bld) [Mass/Vol] 102 pg/mL Normal 0 - 125 [facility] Comment on above: Performed By: #### 2 [id number] #### [address] [address] TROPONINon 07-10-2024 HS TROPONIN 15.5 pg/mL Normal 0.0 - 76.2 [facility] Comment on above: Performed By: #### 2 [id number] ####[facility],[address] [place] [address] HS TROPONIN 13.0 pg/mL Normal 0.0 - 76.2 [facility] Comment on above: Performed By: #### 2 [address]3517 #### [place] [id number] No Panel InformationOrdered By: KAT Hudson on 06-04-2023 Prostate Specific Antigen Total < 0.01 ng/mL 0.0-4.0 [facility] Comment on above: This test was perfor med using the TPSA assay method for the[employer] chemistry system. Values obtained with differentassay methods cannot be used interchangably.When changing PSA assays in the course of monitoring apatient, additional sequential testing should be carriedout to confirm baseline values. No Panel InformationOrdered By: KAT Hudson on 07-12-2022 Prostate Specific Antigen Total < 0.01 ng/mL 0.0-4.0 [facility] Comment on above: This test was perfor med using the TPSA assay method for the[employer] chemistry system. Values obtained with differentassay methods cannot be used interchangably.When changing PSA assays in the course of monitoring apatient, additional sequential testing should be carriedout to confirm baseline values. PSA,Total- Diagnosticon 06-30 PSA, DIAGNOSTIC < 0.01 Normal 0.0-4.0 [facility] Comment on above: Result Comment: This test was performed using the TPSA assay method for the [employer] chemistry system. Values obtained with different assay methods cannot be used interchangably. When changing PSA assays in the course of monitoring a patient, additional sequential testing should be carried out to confirm baseline values. Performed By: #### L [id number] #### [facility] [address] [place], [place], [id number] CHEST PA/AP AND LATERALon CHEST PA/AP AND LATERAL CHEST PA/AP LATE RAL Ordering Physician: Bolivar Alegria 02/09/2021 8:52 AM PA AND LATERAL CHEST: Clinical Statement: Screening Comparison: None FINDINGS: No focal consolidation, pleural effusion, pneumothorax, pulmonary nodules or pulmonary edema. The cardiac silhouette is within normal limits. The osseous structures are unremarkable. IMPRESSION: No acute cardiopulmonary disease. This report was electronically signed by Brad Skelton MD 02/09/2021 10:17 AM Reported By: BRAD SKELTON M.D. Signed By: BRAD SKELTON M.D. [facility] [place] Encounters Encounter Date Encounter Type Care Provider Facility Start: 07-10-2024 End: 07-10-2024 Emergency department patient visit [facility] Start: 06-04-2023 End: 06-04-2023 ambulatory [facility] Work Phone: Start: 06-04-2023 End: 06-04-2023 Patient encounter procedure [facility] Work Phone: Start: 04-13-2023 ambulatory Rita Manrique lity:[facility] Start: 07-12-2022 End: 07-12-2022 ambulatory Iain Gonzalez [facility] Work Phone: Start: 07-12-2022 End: 07-12-2022 Patient encounter procedure [facility] Immunizations Immunization Date Immunization Notes Care Provider Fa cili 03-17-2015 Influenza virus vaccine [facility] Payers Date Payer Category Payer Private Health Insurance [id number] 2022 Self-pay [id number] 2016 Unknown [place] [id number] 1960 Unknown [id number] Private Health Insurance [id number] Unknown [id number] Unknown [id number] [id number] [id number] Social History Date Type Detail Facility [facility] Start: 1960 Sex Assigned At Male [facility] Clinical Note 07-10-2024 Note Date & Type Note Facility 07-10-2024 Note Discharge Instructio ns Discharge Summary [address] [address] [id number] 07/10/2024 Patient: EMANUEL DURÁN Sex: Male : 1960 Age: 63y Thank you for visiting [facility]. You have been evaluated today by Les Kelly M.D. for the following condition(s): Principal Diagnosis Influenza type A with upper respiratory infection. INSTRUCTIONS Follow-up: Follow up with your doctor in two days. You have been given the following additional information: Influenza (Adult) Patient Signature Facility Correctional Maintenance Technician Date/Time 1 of 5 Discharge Instructions General Instructions with ExitWriter [facility] [address] [place] [address] [id number] 07/10/2024 Patient: EMANUEL DURÁN Sex: Male : 1960 Age: 63y Thank you for visiting [facility]. You have been evaluated today by Les Kelly M.D. for the following condition(s): Principal Diagnosis Influenza type A with upper respiratory infection. INSTRUCTIONS Follow-up: Follow up with your doctor in two days. ADDITIONAL INFORMATION 2 of 5 Discharge Instructions Influenza (Adult) Influenza is also called the flu. It's a viral illness that affects the air passages of your lungs. It's different from the common cold. The flu can easily be passed from one to person to another. It may be spread through the air by coughing and sneezing. Or it can be spread by touching the sick person and then touching your own eyes, nose, or mouth. The flu starts 1 to 3 days after you are exposed to the flu virus. It may last for 1 to 2 weeks but sometimes people feel tired or fatigued for many weeks afterward. You usually don't need to take antibiotics unless you are at high risk for or have a complication . This might be an ear or sinus infection or pneumonia. Symptoms of the flu may be mild or severe. They can include extreme tiredness (wanting to stay in bed all day), chills, fevers, muscle aches, soreness with eye movement, headache, and a dry, hacking cough. 3 of 5 Discharge Instructions Antiviral medicine for the flu is available by prescription. If you start taking it within 48 hours, it may help reduce how long your symptoms last and how severe they are. Your provider may do a test to find out if you have influenza and which strain you have. Home care Follow these guidelines when caring for yourself at home: Stay away from cigarette smoke, whether yours or other people's. Acetaminophen or ibuprofen will help ease your fever, muscle aches, and headache. Don't give aspirin to anyone younger than 18 who has the flu. This can cause a serious condition called Dalia syndrome. Nausea, loose stools, and loss of appetite are common with the flu. Eat light meals. Drink 6 to 8 glasses of liquids every day. Good choices are water, sport drinks, soft drinks without caffeine, juices, tea, and soup. Extra fluids will also help loosen secretions in your nose and lungs. [id number]-qaw-[id number] cold medicines will not make the flu go away faster. But the medicines may help with coughing, sore throat, and congestion in your nose and sinuses. Don't use a decongestant if you have high blood pressure. Stay home until your fever has been gone for at least 24 hours without using medicine to reduce fever. Follow-up care Follow up with your healthcare provider, or as advised, if you are not getting better over the next week. If you are age 65 or older, talk with your provider about getting a pneumococcal vaccine every 5 years. You should also get this vaccine if you have chronic asthma or COPD. All adults should get a flu vaccine every fall. Ask your provider about this. When to seek medical advice Call your healthcare provider right away if you have the flu and any of these occur: Cough with lots of colored mucus (sputum) or blood in your mucus Chest pain, shortness of breath, wheezing, or trouble breathing Severe headache, or face, neck, or ear pain New rash with fever Fever of 100.4F (38C) or higher, or as directed by your healthcare provider Confusion, behavior change, or seizure 4 of 5 Discharge Instructions Severe weakness or dizziness You get a new fever or cough after getting better for a few days Also call your provider if you have flu symptoms and have a weakened immune system or are taking medicines that can weaken your immune system. These include steroids and certain anti-inflammatory medicines. 5 of 5 [facility] Evaluation note Note Date & Type Note Facility Evaluation note No assessment information availa [facility] Work Phone: Summary Purpose Family History No Family History Records FoundNo Family History Records FoundNo Family History Records Found Advance Directives No Advanced Directives Records Found Advance Directive Response Recorded Date/ Time Advance Directives No July 29 2:48pm Living Will No August 03, 2016 12:51pm Power of Early Childhood Lead Teacher No August 03 12:51pm Chief Complaint and Reason for Visit Chief Complaint PSA Additional Source Comments (unrecognized sect ion and content) No Status Records FoundNo Status Records FoundNo Status Records Found INFORMATION SOURCE (unrecogn ized section and content) DATE CREATED AUTHOR 02/09/2021 [facility] DATE CREATED AUTHOR AUTHOR'S ORGANIZ ATION 04/14/2023 [facility] DATE CREATED AUTHOR AUTHOR'S ORGANIZ ATION 07/12/2024 [facility] Care Teams (unrecognized sec tion and content) Team Status: Active Member Role Status Dates Dr. Ricky Wills MD Family Provider Active SHIREEN Galaviz Primary Care Provider Active Team Status: Inactive Member Role Status Dates SHIREEN Galaviz Primary Care Provider Active Rita Hudson , DYE RANGE OPERATOR CLOTH-C Attending Provider, Chandu li Provider Active Goals (unrecognized section and content) Goals may be documented in a n alternate sectionGoals may be documented in an alternate section FOR RECORDS PERTAINING TO PATIENTS WHO ARE [...] BE BASED ON THE PRIMARY CLINICAL RECORDS. [employer] provides no warranty or guarantee of the accuracy or completeness of information in this document.
== END | disposition home or self-care (01) ==
LOC: LAB 10:24
PROVIDERS: PCP Physician Assistant; Referring Provider Urology; Visit Provider Urology
DX: C61 Malignant neoplasm of prostate (principal)
CPT/HCPCS: 36415; 84153